=== PATIENT | female | born 1985 | race Asian ===

== ENCOUNTER 2016-06-27 08:05 | Inpatient (IN) | payer SELFPAY ==
[~2016-06-27] VITALS: Ht 174 cm; Wt 71.0 kg
[2016-06-27] MEDS ORDERED: CARBOPROST 250 MCG/ML AMP IM PRN (08:55)
[2016-06-27] MEDS ORDERED: NALBUPHINE 10 MG/ML AMP IVP PRN ×2 (08:55→13:50)
[2016-06-27] MEDS ORDERED: METHYLERGONOVINE 0.2 MG/ML AMP IM SCH (08:55)
[2016-06-27] MEDS ORDERED: MISOPROSTOL 25 MCG TAB VG PRN (08:55)
[2016-06-27] MEDS ORDERED: PROMETHAZINE 25 MG/ML VIAL IVP PRN ×2 (08:55→13:50)
[2016-06-27 09:00] VITALS: BP 101/63
[2016-06-27 09:46] LABS: BASOPHILS % (AUTO) 0.2 % (0.0-2.0); EOSINOPHILS # (AUTO) 0.1 K/uL (0-0.4); HEMATOCRIT 30.3 % (36-48); HEMOGLOBIN 9.6 g/dL (12.0-16.0); LYMPHOCYTES # (AUTO) 0.9 K/uL (2.5-16.5); LYMPHOCYTES % (AUTO) 13.5 % (20.5-51.1); MEAN CORPUSCULAR HEMOGLOBIN 28 pg (27-31); MEAN CORPUSCULAR HGB CONC 32 g/dL (33-37); MEAN CORPUSCULAR VOLUME 89 fL (80-94); MONOCYTES # (AUTO) 0.7 K/uL (0.8-1.0); NEUTROPHILS # (AUTO) 4.9 K/uL (1.8-7.7); NEUTROPHILS % (AUTO) 74.3 % (42.2-75.2); PLATELET COUNT (AUTO) 272 K/uL (140-450); RED BLOOD CELL COUNT(AUTO) 3.42 MIL/uL (4.20-5.40); RED CELL DISTRIBUTION WIDTH 12.8 % (11.6-13.7); WHITE BLOOD COUNT (AUTO) 6.6 K/uL (4.8-10.8)
[2016-06-27] MEDS ORDERED: OXYTOCIN 20 UNITS/LR PREMIX 1,000 ML IV SCH (09:50)
[2016-06-27] MEDS ORDERED: OXYTOCIN 10 UNITS/ML VIAL ONE (10:27)
[2016-06-27] MEDS ORDERED: MISOPROSTOL 25 MCG TAB ONE (10:27)
[2016-06-27] MEDS: LACTATED RINGERS 1,000 ML IV SCH ×2 (10:36→15:47)
[2016-06-27 10:43] LABS: APPEARANCE,URINE CLEAR (CLEAR); BILIRUBIN,URINE NEGATIVE (NEGATIVE); COLOR,URINE YELLOW (YELLOW); NITRITE, URINE NEGATIVE (NEGATIVE); PH,URINE 6.5 (5.0-9.0); PROTEIN,URINE NEGATIVE (NEGATIVE); UGLUCOSE NEGATIVE (NEGATIVE); UROBILINOGEN,URINE 0.2 EU/dL (0.2 - 1)
[2016-06-27 11:01] LABS: BLOOD, URINE TRACE (NEGATIVE)
[2016-06-27 11:02] LABS: BACTERIA,URINE OCCASSIONAL /HPF (None Seen); LEUKOCYTE ESTERASE ,URINE TRACE (NEGATIVE); RBC,URINE NONE SEEN /HPF (0-5); SQUAMOUS EPITHELIAL CELL,UR 0-3 (FEW) /LPF (0-3 (FEW)); WBC,URINE 0-5 (RARE) /HPF (0-5)
[2016-06-27] MEDS ORDERED: OXYTOCIN 10 UNITS/ML VIAL IM SCH (12:00)
[2016-06-27] MEDS ORDERED: NALBUPHINE HYDROCHLORIDE 10 MG/ML VIAL ONE (13:54)
[2016-06-27] MEDS ORDERED: PROMETHAZINE 25 MG/ML VIAL ONE (13:54)
[2016-06-27] MEDS ORDERED: BUPIVACAINE 0.125%/NS PREMIX 250 ML ONE (16:00)
[2016-06-28] MEDS ORDERED: MEASLES, MUMPS, AND RUBELLA 1 VIAL SQVAC PRN (00:15)
[2016-06-28] MEDS ORDERED: OXYTOCIN 10 UNITS/ML VIAL IM PRN (00:15)
[2016-06-28] MEDS ORDERED: METHYLERGONOVINE 0.2 MG/ML AMP IM PRN (00:15)
[2016-06-28] MEDS ORDERED: BENZOCAINE/MENTHOL 20%-0.5% 60 GM CAN TP PRN (00:15)
[2016-06-28] MEDS ORDERED: TEMAZEPAM 15 MG CAP PO PRN (00:15)
[2016-06-28] MEDS ORDERED: WITCH HAZEL 40 PAD PACKAGE TP PRN (00:15)
[2016-06-28] MEDS ORDERED: oxyCODONE/APAP 5/325 MG 1 TAB TAB PO PRN (00:15)
[2016-06-28] MEDS ORDERED: HYDROcodone/APAP 5/325 MG 1 TAB TAB PO PRN (00:15)
--- NOTE | 2016-06-28 08:29 | NUR ---
PATIENT HAS BEEN SCREENED AND CATEGORIZED LOW NUTRITION RISK. PATIENT WILL BE SEEN WITHIN 7 DAYS OF ADMISSION. 07/04/[address]
[2016-06-28] MEDS: IBUPROFEN 800 MG TAB PO PRN ×2 (09:22→16:34)
[2016-06-28] MEDS ORDERED: DOCUSATE SOD/SENNA 50/8.6 MG 1 TAB PO SCH (21:00)
[2016-06-29 06:05] LABS: HEMATOCRIT 24.6 % (36-48)
[2016-06-29] MEDS: IBUPROFEN 800 MG TAB PO PRN (09:37)
== END 2016-06-29 14:25 | disposition home or self-care (01) | DRG 775 ==
LOC: MLD 08:05 → MFCC 06-28 01:42
PROVIDERS: ADMIT Obstetrics & Gynecology; ATTEND Obstetrics & Gynecology
PROC: 10E0XZZ Delivery of Products of Conception, External Approach (ICD-10-PCS; principal; 2016-06-27)
PROC: 10907ZC Drainage of Amniotic Fluid, Therapeutic from Products of Conception, Via Natural or Artificial Opening (ICD-10-PCS; 2016-06-27)
PROC: 0W8NXZZ Division of Female Perineum, External Approach (ICD-10-PCS; 2016-06-27)
PROC: 3E0P7GC Introduction of Other Therapeutic Substance into Female Reproductive, Via Natural or Artificial Opening (ICD-10-PCS; 2016-06-27)
PROC: 00HU33Z Insertion of Infusion Device into Spinal Canal, Percutaneous Approach (ICD-10-PCS; 2016-06-27)
PROC: 3E0R3CZ (ICD-10-PCS; 2016-06-27)
PROC: 3E0234Z Introduction of Serum, Toxoid and Vaccine into Muscle, Percutaneous Approach (ICD-10-PCS; 2016-06-28)
DX: O69.81X0 Labor and delivery complicated by cord around neck, without compression, not applicable or unspecified (principal); O99.02 Anemia complicating childbirth; Z3A.39 39 weeks gestation of pregnancy; Z37.0 Single live birth; Z23 Encounter for immunization
CPT/HCPCS: 36415; 51702; 59200; 59409; 81001; 85018; 85025; 86592; 86886; 86900; 86901; 90715; J2300; J2550; J2590; J3490; J7120